=== PATIENT | male | born 1945 | race Caucasian/White ===

== ENCOUNTER 2019-06-08 10:49 | Emergency (ER) ==
[2019-06-08 10:55] VITALS: BP 132/57; TEMP 97.6; BMI 23.4
[2019-06-08] MEDS ORDERED: SODIUM CHLORIDE 1,000 ML IV STA (11:41)
[2019-06-08] MEDS ORDERED: MORPHINE 4 MG/ML SYRINGE IVP STA ×2 (11:44→13:08)
[2019-06-08] MEDS ORDERED: ZOFRAN 4 MG/2 ML IVP STA ×2 (11:44→13:08)
--- NOTE | 2019-06-08 13:09 | CT ---
EXAM: CT abdomen pelvis without contrast HISTORY: Pain, right lower quadrant/flank COMPARISON: 04/16/2015 TECHNIQUE: CT abdomen pelvis performed without intravenous contrast. Coronal and sagittal reformatt ed images obtained. FINDINGS: Mild bibasilar subsegmental atelectasis and/or scarring. Interlobular septal thickening a t the lung bases appears similar to prior examination in 2015. No acute abnormalities of the bones. Degenerative change in the spine. This is greatest at L5-S1. Evaluation organ parenchyma limited w ithout contrast. Heart normal in size. Liver unremarkable. Gallbladder unremarkable. Pancreas unr emarkable. Spleen unremarkable. Adrenals unremarkable. Aorta normal in caliber. Mild atherosclero sis. Prostate normal in size. Small bilateral fat containing inguinal hernias. No lymphadenopathy or ascites. Small fat-containing periumbilical hernia. Stomach unremarkable. No dilated loops smal l bowel. Appendix not definitively visualized. Colon unremarkable. No nephrolithiasis. Mild right hydronephrosis secondary to a 8 x 5 x 9 mm (AP by transverse by craniocaudal) obstructing calculus i n the right proximal ureter near the ureteropelvic junction. No left hydronephrosis. Left and possi serina right renal parapelvic cysts present. No calculi visualized in the normal course of the left ure ter. Nonspecific bilateral perinephric stranding, right greater than left. Bladder only mildly dist ended and poorly evaluated, grossly unremarkable. IMPRESSION: 1. Mild right hydronephrosis secondary to a 8 x 5 x 9 mm obstructing calculus in the proximal ureter near the ureteropelvic junction. Recommend urologic consultation given size of calculus. 2. Nonspecific bilateral perinephric stranding, right greater than left. 3. Left and possibly right parapelvic renal cysts. 4. Mild nonspecific interlobular septal thickening at the lung bases appears similar to 2015 and may reflect chronic interstitial change. Mild interstitial edema could have a similar appearance.
--- NOTE | 2019-06-08 13:22 | ED.PDOC ---
General ED Provider: Dr. MANDY MARISCAL Chief Complaint: Abdominal Pain Stated Complaint: R. flank pain Time Seen by Physician: 11:00 Mode of Arrival: Walk-In Information Source: Patient Exam Limitations: No limitations Primary Care Provider: LAURYN KINCAID Nursing and Triage Documentation Reviewed and Agree: Yes Does patient meet sepsis criteria?: No System Inflammatory Response Syndrome: Not Applicable Sepsis Protocol: For patient's 13 years and over: Temp is 96.8 and below OR 101 and greater Pulse >90 BPM Resp >20/minute Acutely Altered Mental Status Are patient's symptoms suggestive of a new infection, such as: -Pneumonia -Skin, Soft Tissue -Endocarditis -UTI -Bone, Joint Infection -Implantable Device -Acute Abdominal Infection -Wound Infection -Meningitis -Blood Stream Catheter Infection -Unknown Musculoskeletal Complaint Exam - Back Pain Complaint/Exam Mechanism of Injury: Reports: No known trauma, Other (has had a prior renal stone and the pain and location match his prior experience) Onset/Duration: ONSET 9 AM Symptoms Are: Still present Timing: Intermittent Episodes Lasting: Hours Initial Severity: Moderate Current Severity: Moderate Location: Reports: Discrete (RIGHT SIDED ) Character: Reports: Spasmodic Aggravating: Reports: None Alleviating: Reports: None Associated Signs and Symptoms: Reports: Abdominal pain ( righ), Flank pain (left ) Related History: Reports: Similar episode TAD Risk Factors: Reports: Hypertension AAA Risk Factors: Reports: Smoking, Hypertension Cauda Equina Risk Factors: Reports: None Epidural Abcess Risk Factors: Reports: None Related Surgical History: Reports: Kidney Stone Focal Tenderness: No Paraspinal Muscle Tenderness: No Paraspinal Muscle Spasm: No Scoliosis: No Lordosis: No Kyphosis: No SLR Test: Right Negative, Left Negative Hip Motion Testing Pain: Right Negative, Left Negative Focal Weakness: Present: None Focal Sensory Loss: Present: None Gait: Present: Unable Differential Diagnoses: Renal Colic, Strain, Sprain Review of Systems - Review Of Systems Constitutional: Reports: No symptoms Eyes: Reports: No symptoms Ears, Nose, Mouth, Throat: Reports: No symptoms Respiratory: Reports: No symptoms Cardiac: Reports: No symptoms GI: Reports: Abdominal pain (RLQ) : Reports: No symptoms Musculoskeletal: Reports: Back pain Skin: Reports: No symptoms Neurological: Reports: No symptoms Endocrine: Reports: No symptoms Hematologic/Lymphatic: Reports: No symptoms All Other Systems: Reviewed and Negative Past Medical History - Past Medical History Previously Healthy: Yes Endocrine: Reports: None Cardiovascular: Reports: None Respiratory: Reports: None Hematological: Reports: None Gastrointestinal: Reports: None Genitourinary: Reports: None Neuro/Psych: Reports: None Musculoskeletal: Reports: None Cancer: Reports: None - Surgical History General Surgical History: Reports: None - Family History Family History: Reports: None - Social History Smoking Status: Current every day smoker, Light tobacco smoker Hx Substance Use: No Alcohol Screening: Occasionally - Immunizations Tetanus Shot up to Date: No Physical Exam - Physical Exam Appearance: Ill-appearing Ill-appearing: Mild Pain Distress: Moderate Eyes: CJ, EOMI, Conjunctiva clear ENT: Ears normal, Nose normal, Oropharynx normal Respiratory: Airway patent, Breath sounds clear, Breath sounds equal, Respirations nonlabored Cardiovascular: RRR, Pulses normal, No rub, No murmur GI/: Soft, Nontender, No masses, Bowel sounds normal, No Organomegaly Musculoskeletal: Normal strength, ROM intact, No edema, No calf tenderness Skin: Warm, Dry, Normal color Neurological: Sensation intact, Motor intact, Reflexes intact, Cranial nerves intact, Alert, Oriented Psychiatric: Affect appropriate, Mood appropriate Interpretation - Radiology Interpretation Radiology Interpretation By: Radiologist Radiology Results: Positive (OBSTRUCTIVE STONE U.V.J) - Entry Level Project Engineer Rate: Normal Rhythm: Sinus Ectopy: None - EKG Interpretation Rate: Normal Rhythm: Sinus Ectopy: None ST Segment: Other (CONSISTENT WITH R.B.B.B) Physician Notification - Case Discussed Physician Notified: PMD Time of Notification: 13:25 (STATED TO CONSULT UROLOGY) Physician Notified: ESTEBAN NUNEZ Time of Notification: 14:14 (WILL SEE HIM IN AM BEFORE 10 AM , STONE SIZE AND LOCATION REPORTED TO UROLOGY) Critical Care Note - Critical Care Note Total Time (mins): 0 Course - Course Hematology/Chemistry: 06/08/19 11:20 06/08/19 11:20 Orders, Labs, Meds: Lab Review 06/08/19 06/08/19 11:20 11:20 WBC 6.84 RBC 4.07 L Hgb 13.1 L Hct 37.6 L MCV 92.4 MCH 32.2 H MCHC 34.8 RDW Coeff of Deon 12.8 Plt Count 165 Immature Gran % (Auto) 0.1 Neut % (Auto) 48.8 Lymph % (Auto) 40.2 [place] % (Auto) 8.0 Eos % (Auto) 2.6 Baso % (Auto) 0.3 Immature Gran # (Auto) 0.0 Neut # (Auto) 3.3 Lymph # (Auto) 2.8 [place] # (Auto) 0.6 Eos # (Auto) 0.2 Baso # (Auto) 0.0 Sodium 140.2 Potassium 3.72 Chloride 107.7 H Carbon Dioxide 19.3 L Anion Gap 16.92 BUN 18.3 Creatinine 0.99 Estimated GFR (MDRD) 74.00 BUN/Creatinine Ratio 18.48 Glucose 134.6 H Calcium 9.43 Total Bilirubin 0.59 AST 23.1 ALT 15.4 Alkaline Phosphatase 82.4 Total Protein 7.14 Albumin 4.25 Globulin 2.89 Albumin/Globulin Ratio 1.47 Amylase 69.1 Lipase 75.4 Orders Category Date Time Status EKG-(ED ONLY) Stat CARDIO 06/08/19 11:32 Completed BLADDER SCAN ONCE CARE 06/08/19 13:22 Active AMYLASE Stat LAB 06/08/19 11:20 Completed CBC W/ AUTO DIFF Stat LAB 06/08/19 11:20 Completed COMPREHENSIVE METABOLIC PANEL Stat LAB 06/08/19 11:20 Completed LIPASE Stat LAB 06/08/19 11:20 Completed URINALYSIS C & S IF INDICATED Stat LAB 06/08/19 11:27 Uncollected Morphine Sulfate [Morphine 4 mg/ml Syringe] MEDS 06/08/19 11:44 Discontinued 4 mg IVP ONCE STA Morphine Sulfate [Morphine 4 mg/ml Syringe] MEDS 06/08/19 13:08 Discontinued 4 mg IVP ONCE STA Ondansetron HCl/Pf [Zofran 4 mg/2 ml] MEDS 06/08/19 11:44 Discontinued 4 mg IVP ONCE STA Ondansetron HCl/Pf [Zofran 4 mg/2 ml] MEDS 06/08/19 13:08 Discontinued 4 mg IVP ONCE STA Sodium Chloride 0.9% [Sodium Chloride] 1,000 ml MEDS 06/08/19 11:41 Active IV 125 mls/hr CT ABD/PEL WO RENAL STONE PROT Stat RADS 06/08/19 11:28 Completed Medications Generic Name Dose Route Start Last Admin Trade Name Freq PRN Reason Stop Dose Admin Sodium Chloride 1,000 mls @ 125 mls/hr 06/08/19 11:41 06/08/19 11:45 Sodium Chloride IV 06/08/19 19:40 125 mls/hr .Q8H STA Administration Discontinued Medications Generic Name Dose Route Start Last Admin Trade Name Ethan PRN Reason Stop Dose Admin Morphine Sulfate 4 mg 06/08/19 11:44 06/08/19 12:00 Morphine 4 Mg/Ml Syringe IVP 06/08/19 11:45 4 mg ONCE STA Administration Morphine Sulfate 4 mg 06/08/19 13:08 06/08/19 13:15 Morphine 4 Mg/Ml Syringe IVP 06/08/19 13:09 4 mg ONCE STA Administration Ondansetron HCl 4 mg 06/08/19 11:44 06/08/19 11:59 Zofran 4 Mg/2 Ml IVP 06/08/19 11:45 4 mg ONCE STA Administration Ondansetron HCl 4 mg 06/08/19 13:08 06/08/19 13:15 Zofran 4 Mg/2 Ml IVP 06/08/19 13:09 4 mg ONCE STA Administration Vital Signs: Temp Pulse Resp BP Pulse Ox 06/08/19 10:50 97.6 F 51 L 20 132/57 L 99 Departure - Departure Time of Disposition: 14:15 Disposition: TSF SHORT-TRM HOSP Discharge Problem: Abdominal pain, Renal stone Instructions: Kidney Stones (ED), Flank Pain (ED), Renal Colic (ED) Condition: Good Pt referred to PMD for follow-up: Yes IPMP verified?: No Additional Instructions: Please call your Family Physician as soon as possible to schedule a follow-up appointment. You are to go to outpatient at 09:45 tomorrow at [facility] for abdominal x ray. They will have an order for it Then go to urology offices of Dr Blas at 10:45 , you will see Meaghan Boyer Do not eat or drink anything after midnight tonight Allergies/Adverse Reactions: Allergies No Known Allergies Allergy (Verified 06/08/19 11:04) Home Medications: Ambulatory Orders Amlodipine Besylate/Benazepril [Amlodipine-Benazepril 5-10 mg] 1 each PO DAILY 04/15/15 Ferguson-3S/Dha/Epa/Fish Oil [Ferguson-3 Fish Oil 1,000 mg Sfgl] 1 cap PO DAILY Phenazopyridine HCl [Pyridium] 100 mg PO BID #10 tablet 04/16/15 Tamsulosin HCl [Flomax] 0.4 mg PO DAILY #7 cap.er.24h 04/16/15 Hydrocodone Bit/Acetaminophen [[place] 10-325] 1 each PO Q6HR #7 tablet 06/08/19 Ondansetron HCl [Zofran] 4 mg PO Q8-12H PRN #4 tablet 06/08/19 Disposition Discussed With: Patient, Family
[2019-06-08] MEDS ORDERED: MORPHINE 2 MG/ML SYRINGE IVP STA (14:18)
== END 2019-06-08 14:48 | disposition home or self-care (01) ==
LOC: ED 10:49
DX: N20.0 Calculus of kidney (principal); Z87.442 Personal history of urinary calculi; R10.9 Unspecified abdominal pain; I10 Essential (primary) hypertension; F17.210 Nicotine dependence, cigarettes, uncomplicated; Z79.899 Other long term (current) drug therapy
CPT/HCPCS: 36415; 80053; 82150; 83690; 85025; 93005; 93010; 96361; 96374; 96375; 96376; 99283